=== PATIENT | male | born 1955 | race Caucasian/White ===

== ENCOUNTER → 2024-12-20 07:49 | Outpatient (BNVA) | payer MEDICARE, SELFPAY | PROVIDERS: PCP Nurse Practitioner Family; Referring Provider Nurse Practitioner Family; Visit Provider Psychiatry & Neurology Neurology | DX: I99.8 Other disorder of circulatory system (principal); R41.3 Other amnesia; R41.0 Disorientation, unspecified; R44.3 Hallucinations, unspecified; I48.0 Paroxysmal atrial fibrillation; G45.9 Transient cerebral ischemic attack, unspecified; Z86.73 Personal history of transient ischemic attack (TIA), and cerebral infarction without residual deficits; I63.9 Cerebral infarction, unspecified | CPT/HCPCS: 99203 ==

== ENCOUNTER → 2024-12-28 12:00 | Outpatient (BNVA) | payer MEDICARE, SELFPAY | PROVIDERS: PCP Nurse Practitioner Family; Referring Provider Psychiatry & Neurology Neurology; Visit Provider Psychiatry & Neurology Neurology | DX: I63.9 Cerebral infarction, unspecified (principal) | CPT/HCPCS: 95816; 95819 ==

== ENCOUNTER 2025-01-01 08:18 | Outpatient (CLI) | payer MEDICARE, SELFPAY ==
--- NOTE | 2025-01-01 08:30 | MR_ITS ---
WS: [id number] MRI HEAD WITH CONTRAST TECHNIQUE: Sagittal T1, T2 axial, T2 axial FLAIR, axial susceptibility weighted imaging, axial diffusion weighted images, and coronal T2 images were obtained. Pre and post-T1 axial and post T1 coronal images. ADC and FSPGR images. CLINICAL INFORMATION: I99.8 - Other disorder of circulatory system COMPARISON: None. FINDINGS: Some images degraded by motion. No evidence of restricted diffusion to suggest acute ischemia. Moderate small vessel changes. Moderate parenchymal volume loss. Small vessel changes in the jeffrey. Chronic infarcts LEFT cerebellum. Normal vascular flow voids at the skull base. No extra-axial fluid collections. Paranasal sinuses are well aerated. Mild mucosal thickening LEFT mastoid air cells. RIGHT mastoid air cells are well aerated. Moderate symmetric atrophy temporal lobes and hippocampal formations. No abnormal gadolinium enhancement. MR/MR head wo/w con [id number] IMPRESSION: 1. No evidence restricted diffusion to suggest acute ischemia. 2. Moderate small vessel changes. Moderate parenchymal volume loss. 3. Small vessel changes in the jeffrey. 4. Chronic infarcts LEFT cerebellum. 5. No other acute findings.
--- NOTE | 2025-01-01 09:15 | MR_ITS ---
WS: [email or web address] MRA CAROTID WITHOUT AND WITH GADOLINIUM ENHANCEMENT TECHNIQUE: Axial 2-D TOF and gadolinium bolus images obtained with axial images and axial, sagittal, and coronal 2-D reformatted images. CLINICAL INFORMATION: I99.8 - Other disorder of circulatory system COMPARISON: None. FINDINGS: RIGHT: RIGHT common carotid artery is patent. No significant RIGHT ICA stenosis. LEFT: LEFT common carotid artery is patent. No significant LEFT ICA stenosis. RIGHT dominant vertebral artery. No significant flow in the LEFT vertebral artery. Proximal subclavian arteries are patent. MR/MR angio neck w con* [id number] IMPRESSION: 1. No significant ICA stenosis bilaterally. 2. RIGHT dominant vertebral artery. No significant flow in the LEFT vertebral artery.
[2025-01-01] MEDS: gadobenate dimeglumine 20 mL vial 13 ML IV (09:36)
--- NOTE | 2025-01-01 10:00 | MR_ITS ---
WS: [email or web address] MRA HEAD TECHNIQUE: Axial 3-D TOF images obtained with axial images and axial, sagittal, and coronal 2-D reformatted images. CLINICAL INFORMATION: I99.8 - Other disorder of circulatory system COMPARISON: None. FINDINGS: Distal vertebral arteries are patent. Basilar artery is patent. Normal vascularity to the HUM[employer] ADVISOR territories bilaterally. Both ICAs are patent at the skull base. Small LEFT A1 segment. Normal vascularity to the VIPUL and MCA territories bilaterally. No evidence of proximal flow-limiting stenosis MR/MR angio head wo con [id number] IMPRESSION: 1. Mild intracranial atheromatous disease. 2. Otherwise unremarkable intracranial MRA.
== END 2025-01-01 08:19 | disposition home or self-care (01) ==
PROVIDERS: PCP Nurse Practitioner Family; Visit Provider Psychiatry & Neurology Neurology
DX: I99.8 Other disorder of circulatory system (principal); R41.3 Other amnesia; R93.0 Abnormal findings on diagnostic imaging of skull and head, not elsewhere classified; I67.2 Cerebral atherosclerosis; H74.8X2 Other specified disorders of left middle ear and mastoid; G31.89 Other specified degenerative diseases of nervous system
CPT/HCPCS: 70544; 70548; 70553

== ENCOUNTER → 2025-02-06 09:17 | Outpatient (BNVA) | payer MEDICARE, SELFPAY | PROVIDERS: PCP Nurse Practitioner Family; Visit Provider Internal Medicine Cardiovascular Disease | DX: R07.9 Chest pain, unspecified (principal); I48.91 Unspecified atrial fibrillation; E11.9 Type 2 diabetes mellitus without complications; Z85.118 Personal history of other malignant neoplasm of bronchus and lung; I70.90 Unspecified atherosclerosis; Z86.73 Personal history of transient ischemic attack (TIA), and cerebral infarction without residual deficits; Z79.84 Long term (current) use of oral hypoglycemic drugs; Z87.891 Personal history of nicotine dependence | CPT/HCPCS: 93005; 99204 ==

== ENCOUNTER 2025-03-20 07:46 | Outpatient (CLI) | payer MEDICARE, SELFPAY ==
--- NOTE | 2025-03-20 | ECG_ITS ---
[facility] Test Date: 2025-03-20 Pat Name: Roldan Javier Department: Room: Gender: Male Coat Room Attendant: : 1955 Requested By: Kota Villanueva Order Number: [id number] Apoorva MD: Jimmy Khan M.D. Interpretive Statements Lung unchanged pre/post procedure; Intraprocedure shortess of breath; Symptoms resoled by discharge PROCEDURE: At the baseline, the EKG revealed normal sinus rhythm with diffused nonspecific ST-T changes. Poor R wave progression. Nonspecific IVCD. Voltage criteria for LVH. Minimal left axis deviation.. The baseline heart was 91 bpm with a blood pressue of 160/92 mm of Hg Lexiscan was infused over a period of 20 seconds. A total of 0.4 milligrams of Lexiscan was infused. The stress phase was continued for a total of 5 minutes. Heart rate at the end of the stress phase was 112 bpm with a blood pressure 175/91 mm of Hg. The EKG at the peak infusion revealed more prominent ST-T changes. Sestamibi was injected 20 seconds after the Lexiscan infusion. Heart rate at the end of the recovery phase was 105 bpm with a blood pressure of 155/88 mm of Hg. CONCLUSION: 1. No significant EKG changes with the LexiScan infusion 2. No LexiScan induced chest pain or cardiac arrhythmia 3. Normal blood pressure and heart rate response 4. Sestamibi/sestamibi perfusion scan pending; see separate report. Electronically Signed On 03-25-2025 22:35:15 CDT by Jimmy Khan M.D. [email or web address]
--- NOTE | 2025-03-20 07:45 | USCV_ITS ---
Roldan Javier Age: 69 Gender: M : 1955 Exam Date: 03/20/2025 08:21 Ordering Phys: Kota Villanueva MD ([email or web address]) Technologist: Exam Location: [facility] [place] Indication: tia BP: 130 / 80 HR: 81 Rhythm: Sinus Technical Quality: Adequate MEASUREMENTS (Male / Female) Normal Values 2D ECHO LV Diastolic Diameter PLAX 3.3 cm 4.2 - 5.9 / 3.9 - 5.3 cm IVS Diastolic Thickness 0.9 cm 0.6 - 1.0 / 0.6 - 0.9 cm IVS Systolic Thickness 1.7 cm LVPW Diastolic Thickness 1.2 cm 0.6 - 1.0 / 0.6 - 0.9 cm LVPW Systolic Thickness 1.3 cm LVOT Diameter 2.0 cm LV Ejection Fraction 2D Teich 55.1 % LV Ejection Fraction MOD 4C 69.9 % LV Ejection Fraction MOD 2C 62.2 % LV Ejection Fraction 2C AL 63.0 % LA Diameter 2.8 cm RA Systolic Volume 4C AL 38.9 ml RA Systolic Volume 4C MOD 36.8 ml Aorta at Sinotubular Diameter 2.6 cm M-MODE LA Ao Ratio MM 1.0 AV Cusp Separation MM 1.9 cm DOPPLER AV Peak Velocity 106.0 cm/s LVOT Peak Velocity 91.0 cm/s AV Area Cont Eq vti 3.3 cm squared AV Area Cont Eq pk 2.7 cm squared MV Peak Velocity 119.0 cm/s MV Area PHT 4.2 cm squared Mitral E to A Ratio 1.2 TV Peak Velocity 169.5 cm/s TR Peak Velocity 215.0 cm/s TR Peak Gradient 18.5 mmHg TV Peak E Velocity 82.0 cm/s FINDINGS Left Ventricle Normal left ventricular size, systolic function and wall thickness, with no regional wall motion abnormalities. Left ventricular ejection fraction is estimated at 60 %. Grade II/IV diastolic dysfunction, moderately elevated filling pressures. Right Ventricle The right ventricle is normal in size and function. Right Atrium Mildly increased right atrial size. Left Atrium Mildly increased left atrial size. Mitral Valve Mildly thickened mitral valve. No mitral valve stenosis. Mild to moderate mitral valve regurgitation. Aortic Valve Structurally normal aortic valve without significant sclerosis or stenosis. There is no aortic regurgitation. Tricuspid Valve Trace tricuspid valve regurgitation. Pulmonic Valve Trace pulmonary valve regurgitation. Pericardium Normal pericardium without effusion. Aorta Normal ascending aorta dimension. IVC The inferior vena cava appears normal. CONCLUSIONS Normal left ventricular size, systolic function and wall thickness, with no regional wall motion abnormalities. Left ventricular ejection fraction is estimated at 60 %. Grade II/IV diastolic dysfunction, moderately elevated filling pressures. Mildly thickened mitral valve. No mitral valve stenosis. Mild to moderate mitral valve regurgitation. Trace tricuspid valve regurgitation. There is no pericardial effusion. Right atrial pressure is around 5 mm of mercury. Kota Villanueva MD (Electronically Signed) Final Date: 30 March 2025 17:57 S
--- NOTE | 2025-03-20 07:48 | NMCV_ITS ---
NM baltazar perf SPECT r/s* [id number] Roldan Javier Age: 69 Gender: M : 1955 Exam Date: 03/20/2025 08:52 Ordering Phys: Kota Villanueva MD ([email or web address]) Technologist: TRACIE Dumont Exam Location: [facility] Indications: cp STRESS TEST Please see separate stress test report in [facility] for full findings IMAGE PROTOCOL Rest/Stress 1 Lexiscan Day Radiopharmaceutical Dose (mCi) Administration Site Administered by Rest: Tc-99m 10.5 IV Lisa Zamora, CONTRACTING SPECIALIST Sestamibi Stress:Tc-99m 32.9 IV Lisa Sharmagle, CONTRACTING SPECIALIST Sestamibi Rest: 20-Mar-2025 60 Discovery 630 Stress: 20-Mar-2025 30 Discovery 630 0.4mg Lexiscan. Images obtained in supine and prone position. SPECT RESULTS Technical Quality: Good Raw Data Analysis: Normal Image Corrections: No attenuation or motion correction applied Summed Stress Score: 2 Summed Rest Score: 2 Summed Difference Score: 0 PERFUSION FINDINGS Small area of moderately decreased tracer uptake involving the mid inferoseptal segment with no reversibility, with the supine imaging. Fairly uniform tracer uptake was noted with the prone imaging. FUNCTIONAL RESULTS (calculated via Gated SPECT) Stress Image LV EF (%): 86 Stress EDV (mL):42 TID: 0.72 Stress ESV (mL):6 FUNCTIONAL FINDINGS: Segmental wall motion analysis revealing no gross wall motion abnormalities IMPRESSIONS 1. Myocardial perfusion imaging revealing a small area of persistent decreased tracer uptake in the mid inferoseptal region, only in the supine imaging suggesting myocardial scarring with no ischemia. 2. Normal LV ejection fraction of 88%. 3. LV wall motion analysis revealing no gross wall motion abnormalities. 4. Normal LV volume Low probability for coronary ischemia, based on the above findings Dr Jimmy Khan MD FACC (Electronically Signed) Final Date: 20 March 2025 16:23 S
[2025-03-20 08:02] VITALS: BMI 21.5
[2025-03-20] MEDS: aminophylline 25 mg/mL SDV 20 mL IVP (09:20)
[2025-03-20 09:27] VITALS: BP 157/95; PULSE 105
== END 2025-03-20 07:47 | disposition home or self-care (01) ==
LOC: RAD 07:52 → CDL 08:04
PROVIDERS: PCP Nurse Practitioner Family; Visit Provider Internal Medicine Cardiovascular Disease
DX: I63.9 Cerebral infarction, unspecified (principal); R94.31 Abnormal electrocardiogram [ECG] [EKG]; R93.1 Abnormal findings on diagnostic imaging of heart and coronary circulation; I51.7 Cardiomegaly; I34.0 Nonrheumatic mitral (valve) insufficiency
CPT/HCPCS: 36415; 78452; 93017; 96374; A9500; C8929; J0280; J2785

== ENCOUNTER → 2025-05-21 14:02 | Outpatient (BNVA) | payer MEDICARE, SELFPAY | PROVIDERS: PCP Nurse Practitioner Family; Referring Provider Nurse Practitioner Family; Visit Provider Specialist | DX: R41.3 Other amnesia (principal); I10 Essential (primary) hypertension; E11.9 Type 2 diabetes mellitus without complications | CPT/HCPCS: 36415; 82542; 82607; 83520; 84439; 96116; 99215 ==

== ENCOUNTER → 2025-07-16 12:58 | Outpatient (BNVA) | payer MEDICARE, SELFPAY | PROVIDERS: PCP Nurse Practitioner Family; Visit Provider Internal Medicine Cardiovascular Disease | DX: I48.91 Unspecified atrial fibrillation (principal); I10 Essential (primary) hypertension; I65.29 Occlusion and stenosis of unspecified carotid artery; Z86.73 Personal history of transient ischemic attack (TIA), and cerebral infarction without residual deficits; Z87.891 Personal history of nicotine dependence | CPT/HCPCS: 99214 ==